=== PATIENT | male | born 1995 | race Caucasian/White ===

== ENCOUNTER 2016-08-06 16:58 | Emergency (ER) | payer OTHER ==
[2016-08-06 17:19] VITALS: BP 136/76; PULSE 78; TEMP 98; BMI 25.7
--- NOTE | 2016-08-06 18:20 | PDOC ---
History of Present Illness - General Chief Complaint: Pain Stated Complaint: PT WANTS STD TESTING Time Seen by Provider: 08/06/16 18:19 History Source: Patient Exam Limitations: No Limitations - History of Present Illness Initial Comments: 08/06/16 19:05 Chief complaint: Tender area on shaft of penis History of present illness: Patient is a 21-year-old male here today with tender reddened area on shaft of dorsal penis for the last 2 days that is nonraised. Patient reports that he also had a similar area last week that did not blister but was tender stinging sensation of area. He reports having unprotected sex with his girlfriend of 5 years 2 weeks ago and a few days later had stinging area of redness on shaft of penis, area went away on its own. Pt. had sex with her unprotected again 2 days ago developed a similar reddened area on shaft of penis that has not blistered but is minimally raised. Patient reports that last night he felt burning with urination. Pt. denies any discharge from penis. Pt. denies fever, nausea, vomiting or hematuria, frequency or urgency or penile discharge. 08/06/16 19:17 Timing/Duration: intermittent (since last week on penis shaft painful stinging area ) Severity: mild Associated Symptoms: reports: other (redness on penile shaft) Past History - Past Medical History Allergies/Adverse Reactions: Allergies Allergy/AdvReac Type Severity Reaction Status Date / Time No Known Allergies Allergy Verified 08/06/16 17:20 Home Medications: Ambulatory Orders NK [No Known Home Medication] 08/06/16 Other medical history: DENIES - Immunization History Immunization Up to Date: No - Psycho/Social/Smoking Cessation Hx Anxiety: No Suicidal Ideation: No Smoking Status: No Smoking History: Never smoked Number of Cigarettes Smoked Daily: 0 Information on smoking cessation initiated: No Hx Alcohol Use: No Drug/Substance Use Hx: No Substance Use Type: None Review of Systems - Review of Systems Able to Perform ROS?: Yes Constitutional: No: Symptoms Reported HEENTM: No: Symptoms Reported Respiratory: No: Symptoms reported Cardiac (ROS): No: Symptoms Reported ABD/GI: No: Symptoms Reported : Yes: Burning (since last night ), Other (area of erythema minimally raised shaft of penis ). No: Dysuria, Discharge, Frequency, Flank Pain, Hematuria, Incontinence, Pain, Urgency, Lesions Musculoskeletal: No: Symptoms Reported Integumentary: Yes: Other (see under ) Neurological: No: Symptoms reported *Physical Exam - Vital Signs Last Vital Signs Temp Pulse Resp BP Pulse Ox 98 F 78 18 136/76 98 08/06/16 17:18 08/06/16 17:18 08/06/16 17:18 08/06/16 17:18 08/06/16 17:18 - Physical Exam General Appearance: Yes: Appropriately Dressed Respiratory/Chest: positive: Lungs Clear, Normal Breath Sounds Cardiovascular: positive: Regular Rhythm, Regular Rate, S1, S2 Male Genitalia: positive: other (uncircumised penis, area of erythema on shaft of penis minimally raised). negative: discharge, testicular tenderness, testicular mass, epididymus tender, inguinal hernia, hematuria Integumentary: positive: Other (see under penis ) Neurologic: positive: Alert Medical Decision Making - Medical Decision Making 08/06/16 19:13 Patient is a 21-year-old male here today with tender reddened area on shaft of dorsal penis for the last 2 days that is nonraised. Patient reports that he also had a similar area last week that did not blister but was tender stinging sensation of area. He reports having unprotected sex with his girlfriend of 5 years 2 weeks ago and a few days later had stinging area of redness on shaft of penis, area went away on its own. Pt. had sex with her unprotected again 2 days ago developed a similar reddened area on shaft of penis that has not blistered but is minimally raised. Patient reports that last night he felt burning with urination. Pt. denies any discharge from penis. Pt. denies fever, nausea, vomiting or hematuria, frequency or urgency or penile discharge. 08/06/16 19:17 unprotected sex erythema shaft of penis PLAN: urine Chlamydia/GC RPR herpes viral culture urinalysis Rocephin 250 mg IM now azithromycin 1 gm po now 08/06/16 20:32 results for urinalysis still pending and RPR 08/06/16 21:02 Laboratory Tests 08/06/16 19:36 Urine Color Ltyellow Urine Appearance Clear Urine pH 6.0 Ur Specific [place] 1.023 Urine Protein Negative Urine Glucose (UA) Negative Urine Ketones Negative Urine Blood Negative Urine Nitrite Negative Urine Bilirubin Negative Urine Urobilinogen Negative Ur Leukocyte Esterase Negative *DC/Admit/Observation/Transfer Diagnosis at time of Disposition: Unprotected sexual intercourse, Penile erosion - Discharge Dispostion Disposition: HOME Condition at time of disposition: Stable - Referrals Referrals: Addi Carlin MD [Primary Care Provider] - - Patient Instructions Additional Instructions: Call in a few days for results on the lab line Do not have unprotected sex use condoms at all times Return here if symptoms worsen or new symptoms develop Patient voiced understanding of discharge instructions and all questions were answered
[2016-08-06] MEDS ORDERED: AZITHROMYCIN 1 GM PACKET PO ONE (19:02)
[2016-08-06] MEDS ORDERED: AZITHROMYCIN 1 GM PACKET ONE (19:10)
[2016-08-06 20:00] LABS: URINE APPEARANCE CLEAR; URINE BILIRUBIN NEGATIVE (NEGATIVE); URINE BLOOD NEGATIVE (NEGATIVE); URINE COLOR LTYELLOW; URINE GLUCOSE (UA) NEGATIVE (NEGATIVE); URINE KETONE NEGATIVE (NEGATIVE); URINE LEUK ESTERASE NEGATIVE (NEGATIVE); URINE NITRITE NEGATIVE (NEGATIVE); URINE PROTEIN NEGATIVE (NEGATIVE); URINE UROBILINOGEN NEGATIVE E.U./dl (0.2-1.0)
== END 2016-08-06 21:17 | disposition home or self-care (01) ==
LOC: JERFT 16:58
DX: Z72.51 High risk heterosexual behavior (principal); N48.9 Disorder of penis, unspecified
CPT/HCPCS: 36415; 81003; 86593; 87255; 87491; 87591; 96372; 99281-25

== ENCOUNTER 2016-09-10 11:54 | Emergency (ER) | payer OTHER ==
[2016-09-10 11:59] VITALS: BP 143/88; PULSE 90; TEMP 97.7; BMI 25.0
[2016-09-10 13:10] LABS: URINE APPEARANCE CLEAR; URINE BILIRUBIN NEGATIVE (NEGATIVE); URINE BLOOD NEGATIVE (NEGATIVE); URINE COLOR LTYELLOW; URINE GLUCOSE (UA) NEGATIVE (NEGATIVE); URINE KETONE NEGATIVE (NEGATIVE); URINE LEUK ESTERASE NEGATIVE (NEGATIVE); URINE NITRITE NEGATIVE (NEGATIVE); URINE PROTEIN NEGATIVE (NEGATIVE); URINE UROBILINOGEN NEGATIVE E.U./dl (0.2-1.0)
--- NOTE | 2016-09-10 13:50 | PDOC ---
History of Present Illness - General Chief Complaint: Penile Drainage Stated Complaint: LOWER PELVIC PAIN Time Seen by Provider: 09/10/16 12:07 History Source: Patient Exam Limitations: No Limitations - History of Present Illness Initial Comments: 09/10/16 13:45 CC reoccurring redness to penis; seen by multiple providers for same; better post meds; still concerned Quality: reports: mild Past History - Past Medical History Allergies/Adverse Reactions: Allergies Allergy/AdvReac Type Severity Reaction Status Date / Time No Known Allergies Allergy Verified 09/10/16 11:56 Home Medications: Ambulatory Orders NK [No Known Home Medication] 08/06/16 Other medical history: none - Immunization History Immunization Up to Date: No - Psycho/Social/Smoking Cessation Hx Anxiety: No Suicidal Ideation: No Smoking Status: No Smoking History: Never smoked Have you smoked in the past 12 months: No Number of Cigarettes Smoked Daily: 0 Information on smoking cessation initiated: No Hx Alcohol Use: No Drug/Substance Use Hx: No Substance Use Type: None Review of Systems - Review of Systems Constitutional: No: Symptoms Reported HEENTM: No: Symptoms Reported Respiratory: No: Symptoms reported ABD/GI: No: Symptoms Reported : Yes: Testicular Pain (in distant past with multiple negative USs). No: Burning, Dysuria, Discharge, Frequency, Flank Pain, Hematuria, Pain, Urgency, Testicular Mass, Testicular Swelling Musculoskeletal: Yes: Symptoms Reported Integumentary: Yes: Symptoms Reported *Physical Exam - Vital Signs Last Vital Signs Temp Pulse Resp BP Pulse Ox 97.7 F 90 18 143/88 100 09/10/16 11:56 09/10/16 11:56 09/10/16 11:56 09/10/16 11:56 09/10/16 11:56 - Physical Exam General Appearance: No: Appropriately Dressed HEENT: negative: TMs Normal, Pharynx Normal Neck: positive: Supple. negative: Tender, Rigid, Lymphadenopathy (R), Lymphadenopathy (L) Respiratory/Chest: positive: Lungs Clear Gastrointestinal/Abdominal: negative: Normal Bowel Sounds Male Genitalia: positive: normal genitalia, other (mild erythema to base of foreskin; no lesions) Lymphatic: negative: Adenopathy ED Treatment Course - ADDITIONAL ORDERS Additional order review: Laboratory Results 09/10/16 12:40 Urine Color Ltyellow Urine Appearance Clear Urine pH 9.0 H D Ur Specific [place] 1.019 Urine Protein Negative Urine Glucose (UA) Negative Urine Ketones Negative Urine Blood Negative Urine Nitrite Negative Urine Bilirubin Negative Urine Urobilinogen Negative Ur Leukocyte Esterase Negative Medical Decision Making - Medical Decision Making 09/10/16 13:49 urine negative; will suggest continuation of meds until seem by urology 09/10/16 13:52 review previous results with pt while in ED; less anxious *DC/Admit/Observation/Transfer Diagnosis at time of Disposition: Testicular/scrotal pain - Discharge Dispostion Disposition: HOME Condition at time of disposition: Stable Admit: No - Referrals Referrals: Justina Booker MD [Primary Care Provider] - Darryl Nunes MD [Staff Physician] - - Patient Instructions Additional Instructions: continue meds; see urology DEIDRE - Post Discharge Activity Work/School Note: Back to Work
== END 2016-09-10 14:00 | disposition home or self-care (01) ==
LOC: JERFT 11:54 → JER 11:54 → JERFT 14:00
DX: N50.819 Testicular pain, unspecified (principal)
CPT/HCPCS: 81003; 99281-25

== ENCOUNTER 2016-10-10 11:02 | Emergency (ER) | payer OTHER ==
[2016-10-10 11:12] VITALS: BP 137/79; PULSE 76; TEMP 97.8; BMI 24.2
--- NOTE | 2016-10-10 11:50 | PDOC ---
History of Present Illness - General Chief Complaint: Penile Drainage Stated Complaint: PENILE PAIN Time Seen by Provider: 10/10/16 11:21 History Source: Patient Exam Limitations: No Limitations - History of Present Illness Initial Comments: 10/10/16 11:55 21 year old male with history of " penile problem" for past 2-3 months. Multiple visits to emergency department for penile discomfort, presents with concern about veins of penis more prominent, funny feeling with urination, inflammed tip of penis and erections not lasting. Followed by urologist with diagnosis of balanitis, treated presently with clotrimazole and betamethasone. Has scheduled sonogram of testicles in am. States protected intercourse with girlfriend of 5 years, no fever, no chills and no flank pain. Timing/Duration: reports: changing over time Quality: reports: mild Pain Radiation: reports: no radiation Activities at Onset: reports: none Treatment Prior to Arrive: improves with: analgesics Aggravating Factors: improves with: None Past History - Travel Traveled outside of the country in the last 30 days: No Close contact w/someone who was outside of country & ill: No - Past Medical History Allergies/Adverse Reactions: Allergies Allergy/AdvReac Type Severity Reaction Status Date / Time No Known Allergies Allergy Verified 10/10/16 11:09 Home Medications: Ambulatory Orders NK [No Known Home Medication] 08/06/16 Other medical history: none - Immunization History Immunization Up to Date: No - Psycho/Social/Smoking Cessation Hx Anxiety: No Suicidal Ideation: No Smoking Status: No Smoking History: Never smoked Have you smoked in the past 12 months: No Number of Cigarettes Smoked Daily: 0 Information on smoking cessation initiated: No Hx Alcohol Use: No Drug/Substance Use Hx: No Substance Use Type: None Abd/GI Specific PMHX - Complaint Specific PMHX Colitis: No Diverticulitis: No Gall Bladder Disease: No GERD: No Hepatitis: No Irritable Bowel Synd (IBS): No Pancreatitis: No GI Ulcer Disease: No Review of Systems - Review of Systems Able to Perform ROS?: Yes Is the patient limited [place] proficient: No Constitutional: No: Chills, Fever HEENTM: No: Eye Pain, Throat Pain Respiratory: No: Cough, Orthopnea, Shortness of Breath, Wheezing Cardiac (ROS): No: Chest Pain, Lightheadedness ABD/GI: No: Abdominal Distended, Blood Streaked Bowels, Poor Appetite, Poor Fluid Intake : Yes: Burning, Testicular Pain, Other (tip of penile pain) Integumentary: No: See HPI Neurological: No: Headache, Tingling *Physical Exam - Vital Signs Last Vital Signs Temp Pulse Resp BP Pulse Ox 97.8 F 76 18 137/79 98 10/10/16 11:09 10/10/16 11:09 10/10/16 11:09 10/10/16 11:09 10/10/16 11:09 - Physical Exam General Appearance: Yes: Nourished, Appropriately Dressed. No: Apparent Distress HEENT: positive: EOMI, [place], Normal ENT Inspection, Pharynx Normal Neck: positive: Supple. negative: Lymphadenopathy (R), Lymphadenopathy (L) Respiratory/Chest: positive: Lungs Clear, Normal Breath Sounds. negative: Respiratory Distress, Accessory Muscle Use Cardiovascular: positive: Regular Rhythm, Regular Rate, S1, S2 Male Genitalia: positive: other (swelling of merlos of glans of penis with discoloration, appearing blister like ). negative: discharge, testicular tenderness Extremity: positive: Normal Capillary Refill Integumentary: positive: Normal Color Neurologic: positive: pre billing specialist II-XII NML intact, Fully Oriented, Alert, Normal Mood/ Affect, Normal Response, Motor Strength 5/5 Medical Decision Making - Medical Decision Making 10/10/16 12:02 21 year old male with multiple visits for penile issues, followed by urologist here with swelling of merlos of glans -urinalysis, urine culture -gc/chlamydia, gonorrhea and trich sent 10/10/16 18:46 urinalysis negative urine culture and std screening pending encouraged condom with intercourse review cleaning of penis and need to not irritate the area *DC/Admit/Observation/Transfer Diagnosis at time of Disposition: Irritation of penis - Discharge Dispostion Disposition: HOME Condition at time of disposition: Good Admit: No - Referrals Referrals: Naldo Villanueva MD [Staff Physician] - - Patient Instructions Additional Instructions: Continue treatment as prescribed by urologist and have sonogram as previously scheduled. - Post Discharge Activity Work/School Note: Back to Work
[2016-10-10 13:10] LABS: URINE APPEARANCE CLEAR; URINE BILIRUBIN NEGATIVE (NEGATIVE); URINE BLOOD NEGATIVE (NEGATIVE); URINE COLOR LTYELLOW; URINE GLUCOSE (UA) NEGATIVE (NEGATIVE); URINE KETONE NEGATIVE (NEGATIVE); URINE LEUK ESTERASE NEGATIVE (NEGATIVE); URINE NITRITE NEGATIVE (NEGATIVE); URINE PROTEIN NEGATIVE (NEGATIVE); URINE UROBILINOGEN NEGATIVE E.U./dl (0.2-1.0)
== END 2016-10-10 13:27 | disposition home or self-care (01) ==
LOC: JERFT 11:02
DX: N48.89 Other specified disorders of penis (principal)
CPT/HCPCS: 36415; 81003; 87086; 87491; 87591; 99281-25

== ENCOUNTER 2016-12-17 12:58 | Emergency (ER) | payer OTHER ==
[2016-12-17 13:02] VITALS: BP 133/69; PULSE 80; TEMP 98.1; BMI 24.2
--- NOTE | 2016-12-17 13:45 | PDOC ---
History of Present Illness - General History Source: Patient Exam Limitations: No Limitations - History of Present Illness Initial Comments: 12/17/16 14:10 The patient is a 21 year old male, with no significant past medical history , who presents today complaining of 3 weeks of an annoying nauseas hunger feeling . The patient states that he has not been hungry, but simultaneously feels nauseous when he is hungry. He notes that he has been busy with work and hasnt been eating healthy lately. Denies fever, chills, vomiting. Denies abdominal pain. Denies constipation, diarrhea. Denies urinary changes. Allergies: none reported Social Hx: No alcohol use. Marijuana use (last use was about 1 week ago). No tobacco use. <Bozena Mora - Last Filed: 12/17/16 14:10> - General History Source: Patient Exam Limitations: No Limitations <Aida Roman - Last Filed: 12/17/16 15:17> - General Chief Complaint: Pain, Acute Stated Complaint: ABD PAIN Time Seen by Provider: 12/17/16 13:21 Past History <Bozena Mora - Last Filed: 12/17/16 14:10> - Past Medical History Other medical history: DENIES. - Immunization History Immunization Up to Date: No - Psycho/Social/Smoking Cessation Hx Anxiety: No Suicidal Ideation: No Smoking Status: No Smoking History: Never smoked Have you smoked in the past 12 months: No Number of Cigarettes Smoked Daily: 0 Hx Alcohol Use: No Drug/Substance Use Hx: No Substance Use Type: None <Aida Roman - Last Filed: 12/17/16 15:17> - Past Medical History Allergies/Adverse Reactions: Allergies Allergy/AdvReac Type Severity Reaction Status Date / Time No Known Allergies Allergy Verified 12/17/16 13:01 Home Medications: Ambulatory Orders Ranitidine [Zantac -] 150 mg PO DAILY #30 tablet 12/17/16 Review of Systems - Review of Systems Able to Perform ROS?: Yes Comments:: 12/17/16 14:11 GENERAL/CONSTITUTIONAL: No: fever, chills, weakness, loss of appetite. HEAD, EYES, EARS, NOSE AND THROAT: No: change in vision, ear pain, discharge, sore throat, throat swelling. CARDIOVASCULAR: No: chest pain, lightheadedness, palpitations, syncope RESPIRATORY: No: cough, shortness of breath, wheezing, hemoptysis, stridor. GASTROINTESTINAL:yes: "nauseas hunger" x 3 weeks. No: vomiting, abdominal cramping, diarrhea, rectal bleeding, constipation. GENITOURINARY: No: dysuria, hematuria, frequency, urgency, flank pain. MUSCULOSKELETAL: No: back pain, neck pain, joint pain, muscle swelling or pain SKIN: No: lesions, pallor, rash or easy bruising. NEUROLOGIC: No: headache, vertigo, paresthesias, weakness ENDOCRINE: No: unexplained weight gain or loss HEMATOLOGIC/LYMPHATIC: No: anemia, easy bleeding, swelling nodes <Bozena Mora - Last Filed: 12/17/16 14:10> *Physical Exam - Vital Signs Last Vital Signs Temp Pulse Resp BP Pulse Ox 98.1 F 80 18 133/69 98 12/17/16 12:59 12/17/16 12:59 12/17/16 12:59 12/17/16 12:59 12/17/16 12:59 - Physical Exam Comments: 12/17/16 14:12 GENERAL: The patient is in no acute distress. HEAD: Normal with no signs of trauma. EYES: PERRLA, EOMI, sclera anicteric, conjunctiva clear. ENT: Ears normal, nares patent, oropharynx clear without exudates. Moist mucous membranes. NECK: Normal range of motion, supple without lymphadenopathy, JVD, or masses. LUNGS: Breath sounds equal, clear to auscultation bilaterally. No wheezes, and no crackles. HEART:Regular rate and rhythm, normal S1 and S2 without murmur, rub or gallop. ABDOMEN: Soft, nontender, normoactive bowel sounds. No guarding, no rebound. EXTREMITIES: Normal range of motion, no edema. No clubbing or cyanosis. No erythema, or tenderness. NEUROLOGICAL: Cranial nerves II through XII grossly intact. Normal speech. No focal neurological deficits. MUSCULOSKELETAL: Back nontender to palpation, no CVA tenderness SKIN: Warm, Dry, normal turgor, no rashes or lesions noted. <Bozena Mora - Last Filed: 12/17/16 14:10> - Vital Signs Last Vital Signs Temp Pulse Resp BP Pulse Ox 98.1 F 80 18 133/69 98 12/17/16 12:59 12/17/16 12:59 12/17/16 12:59 12/17/16 12:59 12/17/16 12:59 <Aida Roman - Last Filed: 12/17/16 15:17> ED Treatment Course - LABORATORY CBC & Chemistry Diagram: 12/17/16 14:00 12/17/16 14:01 <Aida Roman - Last Filed: 12/17/16 15:17> Medical Decision Making - Medical Decision Making 12/17/16 13:45 A portion of this note was documented by [employer] under my direction. I have reviewed the details of the note, within reason, and agree with the documentation with the following case summary and management plan written by me. Nursing documentation reviewed and incorporated into medical decision making 12/17/16 15:04 This patient is a 21-year-old male with no significant past medical history who presents emergency department with a complaint of nauseous hunger. Patient states he's had these symptoms for the past 3 weeks intermittently. Symptoms not associated with fevers or chills. He's had no diarrhea, having normal bowel movements. No recent travel No ill contacts No new urinary symptoms pt was afraid of taking any new medications due to concern for his upcoming surgery (he will be having a circumcision) On examination: no abdominal tenderness right now, though he is able to show me the location of his pain no abdominal distention No guarding No rebound will: do basic labs to be sure patient's upper abdominal pain is not the result of biliary pathology or pancreatitis will re assess Laboratory Tests 12/17/16 12/17/16 14:00 14:01 WBC 7.1 D Hgb 14.4 D Hct 43.2 Plt Count 167 Neutrophils % 61.0 D Lymphocytes % 30.2 D BUN 11 D Creatinine 1.0 12/17/16 15:10 Pt presents to the ER with a complaint of upper abdominal pain Labs nml Will prescribe Zantac Will discharge to home Pt will need to follow up with his PMD clinical Impression: gastritis <Aida Roman - Last Filed: 12/17/16 15:17> *DC/Admit/Observation/Transfer - Attestations Richaibe Attestion: 12/17/16 14:12 Documentation prepared by KEN Chacon, acting as medical billing supervisor for Aida Roman MD. <Bozena Mora - Last Filed: 12/17/16 14:10> - Discharge Dispostion Admit: No <Aida Roman - Last Filed: 12/17/16 15:17> Diagnosis at time of Disposition: Gastritis Qualifiers: Gastritis type: unspecified gastritis Chronicity: unspecified Gastritis bleeding: without bleeding Qualified Code(s): K29.70 - Gastritis, unspecified, without bleeding - Discharge Dispostion Disposition: HOME Condition at time of disposition: Stable - Prescriptions Prescriptions: Ranitidine [Zantac -] 150 mg PO DAILY #30 tablet - Referrals Referrals: Justina Booker MD [Primary Care Provider] - - Patient Instructions Printed Discharge Instructions: DI for Gastritis, Hitchcock Diet, Gastritis ( Alternative Therapy) Additional Instructions: Thank you for coming in to the ER today Please take medications as prescribed Please return to the ER for any other concerns or complaints Please monitor yourself for lower abdominal tenderness or pain
[2016-12-17 14:24] LABS: BASOPHIL 0.3 % (0-2.0); EOSINOPHIL 1.4 % (0-4.5); MCH 30.4 pg (25.7-33.7); MCHC 33.4 g/dl (32.0-35.9); MEAN CELL VOLUME 91.1 fl (80-96); MEAN PLT VOLUME 10.4 fl (7.5-11.1); PLATELET COUNT 167 K/MM3 (134-434); RDW 11.8 % (11.9-15.9); WHITE BLOOD COUNT 7.1 K/mm3 (4.0-10.0)
[2016-12-17 14:51] LABS: COCKROFT - GAULT 112.45
== END 2016-12-17 15:44 | disposition home or self-care (01) ==
LOC: JER 12:58
DX: K29.70 Gastritis, unspecified, without bleeding (principal)
CPT/HCPCS: 36415; 80048; 82150; 83690; 85025; 99282-25

== ENCOUNTER 2018-11-22 16:44 | Emergency (ER) | payer OTHER ==
[2018-11-22 17:21] VITALS: BP 133/76; PULSE 96; TEMP 99; BMI 22.6
--- NOTE | 2018-11-22 17:21 | PDOC ---
Rapid Medical Evaluation Time Seen by Provider: 11/22/18 17:18 Medical Evaluation: Allergies Allergy/AdvReac Type Severity Reaction Status Date / Time No Known Allergies Allergy Verified 12/17/16 13:01 11/22/18 17:18 HPI: Spitting up blood x 1 day with RAMOS recent travel from [place]: No gross deficits ORDERS: Tylenol , CXR, D-Dimer CBC, CMP Discharge Disposition - Diagnosis Hemoptysis - Referrals - Patient Instructions - Post Discharge Activity
[2018-11-22 17:51] LABS: BASO % 0.5 % (0-2.0); EOS % 1.9 % (0-4.5); HEMATOCRIT 46.1 % (35.4-49); HEMOGLOBIN 15.2 GM/dL (11.7-16.9); MCH 30.5 pg (25.7-33.7); MEAN CELL VOLUME 92.4 fl (80-96); MEAN PLT VOLUME 10.5 fl (7.5-11.1); MONO % 8.3 % (3.8-10.2); NEUT % 65.3 % (42.8-82.8); PLATELET COUNT 249 K/MM3 (134-434); RBC 4.99 M/mm3 (4.00-5.60); RDW 11.9 % (11.9-15.9); WHITE BLOOD COUNT 6.8 K/mm3 (4.0-10.0)
--- NOTE | 2018-11-22 18:09 | PDOC ---
History of Present Illness - General Chief Complaint: Cold Symptoms Stated Complaint: SPITTING BLOOD Time Seen by Provider: 11/22/18 17:18 History Source: Patient Exam Limitations: No Limitations - History of Present Illness Initial Comments: Patient is a 23-year-old male who states that he visited [facility] and returned 3 days ago. He states that he has had a cough 3 days with one episode of hemoptysis. Patient denies fever/chills. Denies sick contacts. Denies chest pain or shortness of breath. Pt denies hx of PE or DVT. Denies aggravating or relieving factors. 11/22/18 18:05 11/22/18 18:07 Past History - Travel Traveled outside of the country in the last 30 days: Yes If so, where?: [place] Close contact w/someone who was outside of country & ill: No - Past Medical History Allergies/Adverse Reactions: Allergies Allergy/AdvReac Type Severity Reaction Status Date / Time No Known Allergies Allergy Verified 11/22/18 17:24 Home Medications: Ambulatory Orders NK [No Known Home Medication] 11/22/18 - Immunization History Immunization Up to Date: No - Suicide/Smoking/Psychosocial Hx Smoking Status: No Smoking History: Never smoked Have you smoked in the past 12 months: No Number of Cigarettes Smoked Daily: 0 Information on smoking cessation initiated: No Hx Alcohol Use: No Drug/Substance Use Hx: Yes (MARIJUANA) Substance Use Type: None Review of Systems - Review of Systems Able to Perform ROS?: Yes Constitutional: No: Chills, Fever, Night Sweats, Weakness Respiratory: Yes: Cough, Hemoptysis. No: Shortness of Breath, SOB at Rest, Stridor, Wheezing Cardiac (ROS): No: Chest Pain, Irregular Heart Rate, Palpitations, Chest Tightness *Physical Exam - Vital Signs Last Vital Signs Temp Pulse Resp BP Pulse Ox 99.0 F 96 H 18 133/76 100 11/22/18 17:18 11/22/18 17:18 11/22/18 17:18 11/22/18 17:18 11/22/18 17:18 - Physical Exam Comments: Constitutional: VS stated, pt appears in no apparent distress; sitting in chair. Skin: Warm and dry. Intact, no lesions or excoriations. Head: Normocephalic; atraumatic Eyes: conjunctiva pink without injection or discharge. Ears: No tenderness present. Canals without injection or discharge; TM clear, no retractions or bulging. Nose: Patent, mucosa pink. No drainage. Throat: Oropharynx with pink and moist mucosa. Dentition good. No pharyngeal edema; erythema or exudate. Tongue normal, no fasciculations. Airway Patent. Neck: Supple, non-tender, with full ROM, trachea midline, no anterior/posterior cervical chain lymphadenopathy, Chest: Normal AP diameter, symmetrical excursions bilaterally, no retractions or bulging of the intercostal spaces. No pain or tenderness noted on palpation. Lungs: Bilateral breath sounds clear upon auscultation. No adventitious breath sounds. Heart: Regular rate and rhythm, S1/S2 auscultated. No murmurs, rubs, or gallops. No visible pulsations, heaves, or lifts on precordium. Abdomen: Soft and non-tender. Musculoskeletal: Moves all extremities without difficulty. Neurologic: Awake, alert. Conversation fluent. 11/22/18 18:07 ED Treatment Course - LABORATORY CBC & Chemistry Diagram: 11/22/18 17:30 11/22/18 17:36 - ADDITIONAL ORDERS Additional order review: 11/22/18 17:30 RBC 4.99 MCV 92.4 MCHC 33.0 RDW 11.9 MPV 10.5 Neutrophils % 65.3 Lymphocytes % 24.0 D Monocytes % 8.3 Eosinophils % 1.9 Basophils % 0.5 11/22/18 18:08 CXR was reviewed by myself as negative for an infiltrate. Medical Decision Making - Medical Decision Making 11/22/18 18:08 Pt's PERC score is zero. His CBC was WNL, his D dimer was negative and CXR was negative. Pt will f/u with his PCP and given precautions to return. *DC/Admit/Observation/Transfer Diagnosis at time of Disposition: Bronchitis Diagnosis at time of Disposition: (Ruled Out): Hemoptysis - Discharge Dispostion Disposition: HOME Condition at time of disposition: Good - Referrals Referrals: Otf Silver MD [Staff Physician] - - Patient Instructions Printed Discharge Instructions: DI for Acute Bronchitis Additional Instructions: F/U with your PCP - Post Discharge Activity
[2018-11-22 18:35] LABS: BILIRUBIN,TOTAL 0.4 mg/dL (0.2-1); CREATININE 1.2 mg/dL (0.55-1.3); POTASSIUM 4.5 mmol/L (3.5-5.1); TOT PROT 7.6 g/dl (6.4-8.2)
== END 2018-11-22 19:32 | disposition home or self-care (01) ==
LOC: JERFT 16:44
DX: J40 Bronchitis, not specified as acute or chronic (principal); R04.2 Hemoptysis
CPT/HCPCS: 36415; 71046-TC-FY; 80053; 85025; 85379; 99281-25

== ENCOUNTER 2019-05-02 15:10 | Emergency (ER) | payer OTHER ==
[2019-05-02 15:22] VITALS: BP 118/67; PULSE 76; TEMP 98.6; BMI 25.0
--- NOTE | 2019-05-02 15:55 | PDOC ---
History of Present Illness - General Chief Complaint: Pain Stated Complaint: TESTICULAR PAIN X1 WK Time Seen by Provider: 05/02/19 15:25 - History of Present Illness Initial Comments: 05/02/19 15:54 23-year-old male without comorbidities presents for evaluation of testicular pain without systemic symptoms x1 week after wearing tight underwear Past History - Past Medical History Allergies/Adverse Reactions: Allergies Allergy/AdvReac Type Severity Reaction Status Date / Time No Known Allergies Allergy Verified 05/02/19 15:22 Home Medications: Ambulatory Orders NK [No Known Home Medication] 11/22/18 COPD: No - Immunization History Immunization Up to Date: No - Psycho Social/Smoking Cessation Hx Smoking Status: No Smoking History: Never smoked Have you smoked in the past 12 months: No Number of Cigarettes Smoked Daily: 0 Information on smoking cessation initiated: No Hx Alcohol Use: No Drug/Substance Use Hx: No Substance Use Type: None Review of Systems - Review of Systems : Yes: See HPI, Testicular Pain *Physical Exam - Vital Signs Last Vital Signs Temp Pulse Resp BP Pulse Ox 98.6 F 76 18 118/67 99 05/02/19 15:20 05/02/19 15:20 05/02/19 15:20 05/02/19 15:20 05/02/19 15:20 - Physical Exam Comments: 05/02/19 15:54 External genitalia are normal. Normal color and temperature of the scrotum no elevation of the testicles. No areas of tenderness. ED Treatment Course - RADIOLOGY Radiology Studies Ordered: Category Date Time Status SCROTUM AND CONTENTS US [US] Stat Ultrasound 05/02/19 15:33 Ordered Medical Decision Making - Medical Decision Making 05/02/19 16:50 Finding of hydrocele discussed with patient patient will follow-up with urology Discharge - Discharge Information Problems reviewed: Yes Clinical Impression/Diagnosis: Testicular/scrotal pain Condition: Stable Disposition: HOME - Admission No - Follow up/Referral Referrals: Martin Blake MD [Staff Physician] - - Patient Discharge Instructions Additional Instructions: Without fail, please follow-up with urology in 1 to 2 days. There is a finding of a hydrocele on your ultrasound and this needs to be monitored closely. Return to the emergency room for worsening symptoms. Tylenol and Motrin for pain. - Post Discharge Activity
== END 2019-05-02 16:59 | disposition home or self-care (01) ==
LOC: JERFT 15:10
DX: N50.819 Testicular pain, unspecified (principal)
CPT/HCPCS: 76870-TC; 99281-25

== ENCOUNTER 2020-11-04 11:49 | Emergency (ER) | payer OTHER ==
[2020-11-04 12:00] VITALS: BP 127/71; PULSE 92; TEMP 98.5; BMI 25.0
== END 2020-11-04 13:04 | disposition home or self-care (01) ==
LOC: JERFT 11:49
DX: S00.93XA Contusion of unspecified part of head, initial encounter (principal)
CPT/HCPCS: 99282-25

== ENCOUNTER 2020-11-29 11:19 | Emergency (ER) | payer OTHER ==
[2020-11-29 11:33] VITALS: BP 125/75; PULSE 75; TEMP 98.2; BMI 25.0
== END 2020-11-29 13:30 | disposition home or self-care (01) ==
LOC: JER 11:19
DX: R07.82 Intercostal pain (principal)
CPT/HCPCS: 71046-TC-FY; 71101-TC-RT-FY; 99284-25

== ENCOUNTER 2022-03-25 13:21 | Emergency (ER) | payer OTHER ==
[2022-03-25 13:41] VITALS: BP 121/76; PULSE 90; RESP 18; TEMP 98.1; BMI 25.0
== END 2022-03-25 16:18 | disposition left against medical advice (07) ==
LOC: JER 13:21
DX: R45.89 Other symptoms and signs involving emotional state (principal)
CPT/HCPCS: 99283-25